=== PATIENT | male | born 1995 | race Caucasian/White ===

== ENCOUNTER 2022-07-31 06:09 | Emergency (ER) | payer SELFPAY ==
--- OUTSIDE RECORDS SUMMARY | 2022-07-31 06:12 | XMS REPORT | Continuity of Care Document ---
:1995 Author Organization [facility] t Address [address] [place] [address] Care Team Providers Name Role Phone Unavailable Unavailable Unavailable Problems This patient has no known problems. Allergies, Adverse Reactions, Alerts This patient has no known allergies or adverse reactions. Medications This patient has no known medications. Immunizations Ordered Immunization Filled Immunization Date Status Commen ts Source Name Name Pfizer COVID-19 Vaccine Pfizer COVID-19 2021-09-24 Completed Vaccine 00:00:00 Procedures This patient has no known procedures. Encounters Start End Encounter Admission Attending Care Care Encounter Source Date/Time Date/Time Type Type Clinicians Facility Department ID 2021-09-24 2021-09-24 Outpatient [facility] GCCOVIDV [id number] [facility]OVID 00:00:00 00:00:00 V Results This patient has no known results.
[2022-07-31] MEDS ORDERED: MORPHINE 4 MG/ML SYR ONE (06:52)
[2022-07-31] MEDS ORDERED: TAMSULOSIN 0.4 MG SR CAP ONE (06:52)
[2022-07-31] MEDS ORDERED: MAGNESIUM SULFATE 1 gm IVPB 1 GM/100 ML BAG IV ONE (06:52)
--- NOTE | 2022-07-31 07:12 | RAD REPORT ---
EXAM DESCRIPTION: CT - Stone Protocol - 07/31/2022 6:58 am CLINICAL HISTORY: Flank pain. right flank pain COMPARISON: <Comparisons> TECHNIQUE: Axial images were obtained without oral or IV contrast. Lack of contrast limits solid org an and vascular assessment. The [id number] spans the entirety of the system partially obscuring uppermost abdomen and lung bases. Coronal reformatted images were obtained and reviewed. All CT scans are performed using dose optimization technique as appropriate and may include automated exposure control or mA/KV adjustment according to patient size. FINDINGS: The lower lung gutierrez are clear. Imaged portions of the liver and spleen show no suspicious findings on non-contrast imaging. The panc reas and adrenal glands are normal. No pathologic lymphadenopathy in the abdomen or pelvis. 2 mm calculus right UVJ mild right hydronephrosis. This calculus is close to the bladder lumen. No ad ditional tract stone or hydronephrosis. No bowel obstruction, free air, free fluid or abscess. Appendectomy. Small fat containing umbilical. No significant bony abnormality. IMPRESSION: 2 mm right UVJ stone with mild right hydronephrosis. This stone is nearly passed into th e urinary bladder lumen.
[2022-07-31 07:18] LABS: Albumin 4.2 g/dL (3.4-5.0); Bilirubin Total 0.6 mg/dL (0.2-1.0); Protein, Total 8.6 g/dL (6.4-8.2)
[2022-07-31 07:24] LABS: Potassium 4.4 mmol/L (3.5-5.1)
[2022-07-31 07:25] LABS: Absolute Lymphocytes (CBC) 1.4 K/uL (0.7-4.9); Hematocrit 42.3 % (39.6-49.0); Lymphocytes % 15.6 % (15.3-44.8); MCV 88.4 fL (80-100); MPV 7.7 fL (7.6-11.3); RBC Red Blood Cell Count 4.79 M/uL (4.33-5.43)
[2022-07-31] MEDS ORDERED: NA CHLORIDE 0.9% 1,000 ML ONE (07:37)
[2022-07-31 08:00] LABS: Urine Blood Negative (Negative); Urine Glucose Negative (Negative); Urine Protein 1+ (Negative); Urine Specific Gravity 1.025 (1.005-1.030)
--- NOTE | 2022-07-31 08:01 | EDPHYS ---
Physician Documentation [facility] Name: Milan Rea Age: 27 yrs Sex: Male : 1995 Arrival Date: 07/31/2022 Time: 06:13 Bed 13 Private MD: JEF Physician Cory Fish HPI: 07/31 06:33 This 27 yrs old Male presents to ER via Ambulatory with complaints of Back Pain. rn 06:33 The patient presents with pain that is acute. The symptoms are located in the low back. rn Onset: The symptoms/episode began/occurred 5 day(s) ago. The pain radiates to the abdomen. Associated signs and symptoms: Pertinent positives: abdominal pain, Pertinent negatives: chest pain, fever. Modifying factors: The patient symptoms are alleviated by nothing, the patient symptoms are aggravated by nothing. Severity of symptoms: At their worst the symptoms were moderate, in the emergency department the symptoms have improved. The patient has not experienced similar symptoms in the past. The patient has been recently seen by a physician:. Pt reports right flank pain for a few days, got better initially, seen at clinic and told might have a kidney stone, pain worsened tonight. NO fever. + nausea. Pain radiates around to groin and testicles. No hx of kidney stones. . Historical: - Allergies: 06:24 No Known Allergies; bb - Home Meds: 06:24 None [Active]; bb - PMHx: 06:24 None; bb - PSHx: 06:24 Appendectomy; bb - Immunization history:: Client reports receiving the 2nd dose of the Covid vaccine, Pfizer. - Social history:: Smoking status: Patient denies any tobacco usage or history of. - Family history:: not pertinent. - Hospitalizations: : No recent hospitalization is reported. ROS: 06:33 Constitutional: Negative for fever, chills, and weight loss, Eyes: Negative for injury, rn pain, redness, and discharge, Cardiovascular: Negative for chest pain, palpitations, and edema, Respiratory: Negative for shortness of breath, cough, wheezing, and pleuritic chest pain, Abdomen/GI: + abd pain and nausea Back: + right flank pain MS/Extremity: Negative for injury and deformity, Skin: Negative for injury, rash, and discoloration, Neuro: Negative for headache, weakness, numbness, tingling, and seizure. Exam: 06:33 Constitutional: This is a well developed, well nourished patient who is awake, alert rn Head/Face: Normocephalic, atraumatic. Cardiovascular: Regular rate and rhythm. No pulse deficits. Respiratory: No increased work of breathing, no retractions or nasal flaring. Abdomen/GI: Soft, non-tender Back: No spinal tenderness. No costovertebral tenderness. Full range of motion. Skin: Warm, dry MS/ Extremity: Pulses equal, no cyanosis. Neuro: Awake and alert, GCS 15 Vital Signs: 06:22 BP 123 / 81; Pulse 84; Resp 18 S; Temp 98.7(O); Pulse Ox 96% on R/A; Weight 122.47 kg bb (R); Height 5 ft. 11 in. (180.34 cm) (R); Pain 6/10; 06:47 BP 103 / 65; Pulse 82; Resp 22; Pulse Ox 99% on R/A; ja4 07:15 BP 121 / 73; Pulse 76; Resp 18; Pulse Ox 100% ; Pain 6/10; jh6 08:45 BP 118 / 76; Pulse 77; Resp 17; Pain 2/10; jh6 06:22 Body Mass Index 37.66 (122.47 kg, 180.34 cm) bb MDM: 06:15 Patient medically screened. rn 07:12 Differential diagnosis: Pyelonephritis sprain, Ureterolithiasis. Data reviewed: vital miki signs, nurses notes, lab test result(s), radiologic studies, CT scan. 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 Counseling: I had a detailed discussion with the patient and/or guardian regarding: the historical points, exam findings, and any diagnostic results supporting the discharge/admit diagnosis, lab results, the need for outpatient follow up, for definitive care, a family practitioner, a urologist. 07/31 06:27 Order name: CBC with Diff; Complete Time: 07:59 rn 07/31 06:27 Order name: CMP; Complete Time: 07:59 rn 07/31 06:27 Order name: Urine Microscopic Only rn 07/31 06:27 Order name: CT Stone Protocol; Complete Time: 07:59 rn 07/31 08:00 Order name: Urine Dipstick-Ancillary EDIL 07/31 06:27 Order name: IV Saline Lock; Complete Time: 07:02 rn 07/31 06:27 Order name: Labs collected and sent; Complete Time: 07:31 rn 07/31 06:27 Order name: Urine Dipstick-Ancillary (obtain specimen); Complete Time: 08:00 rn Administered Medications: 07:02 Drug: morphine 4 mg Route: IVP; Infused Over: 4 mins; Site: left antecubital; 4 07:02 Drug: Magnesium Sulfate 1 grams Route: IVPB; Infused Over: 1 hrs; Site: left ja4 antecubital; 07:02 Drug: Flomax (tamsulosin) 0.4 mg Route: PO; 4 07:37 Follow up: Response: No adverse reaction 6 07:36 Drug: NS 0.9% 1000 ml Route: IV; Rate: 1 bolus; Site: left antecubital; 6 08:16 Drug: Ketorolac 15 mg Route: IVP; Site: left antecubital; 6 09:19 Follow up: Response: No adverse reaction; Pain is decreased ss Disposition Summary: 07/31/22 08:00 Discharge Ordered Location: Home miki Problem: new miki Symptoms: have improved miki Condition: Stable miki Diagnosis - Hydronephrosis with renal and ureteral calculous obstruction miki Followup: miki - With: Private Physician - When: 1 - 2 days - Reason: Recheck today's complaints, Continuance of care, Re-evaluation by your physician Followup: miki - With: - When: 2 - 3 days - Reason: Recheck today's complaints, Continuance of care, Re-evaluation by your physician Discharge Instructions: - Discharge Summary Sheet miki - Kidney Stones miki - Kidney Stones, [id number] miki - Hydronephrosis miki Forms: - Medication Reconciliation Form miki - Thank You Letter miki - Antibiotic Education miki - Prescription Opioid Use miki - Work release form ss Prescriptions: - Flomax 0.4 mg Oral capsule - take 1 capsule by ORAL route once daily 1/2 hour following the same meal each miki day; 30 capsule; Refills: 0, Product Selection Permitted - Zofran 4 mg Oral Tablet - take 1 tablet by ORAL route every 12 hours As needed; 20 tablet; Refills: 0, [facility] Product Selection Permitted - Cipro 500 mg Oral Tablet - take 1 tablet by ORAL route every 12 hours for 7 days; 14 tablet; Refills: 0, [facility] Product Selection Permitted - Tylenol-Codeine #3 300 mg-30 mg Oral - take 2 tablet by ORAL route every 6 hours; 24 tablet; Refills: 0, Product [facility] Selection Permitted Signatures: Dispatcher [employer] Cory Dow MD MD cha Ballard, Brenda, RN RN Darron Gonzales MD MD rn Hastedt, Jennifer, RN RN jh6 Milan Dillard RN RN ja4 Ximena Morris RN ss
--- NOTE | 2022-07-31 08:01 | ER ---
Nurse's Notes [facility] Name: Milan Rea Age: 27 yrs Sex: Male : 1995 Arrival Date: 07/31/2022 Time: 06:13 Bed 13 Private MD: Diagnosis: Hydronephrosis with renal and ureteral calculous obstruction Presentation: 07/31 06:22 Chief complaint: Patient states: last week he was diagnosed with a kidney stone and he bb thought it passed but now the pain has come back to right lower back and currently is 6/10. Coronavirus screen: At this time, the client does not indicate any symptoms associated with coronavirus-19. Ebola Screen: No symptoms or risks identified at this time. Initial Sepsis Screen: Does the patient meet any 2 criteria? No. Patient's initial sepsis screen is negative. Does the patient have a suspected source of infection? No. Patient's initial sepsis screen is negative. Risk Assessment: Do you want to hurt yourself or someone else? Patient reports no desire to harm self or others. Onset of symptoms was July 31, 2022. 06:22 Method Of Arrival: Ambulatory bb 06:22 Acuity: EMILY 3 bb Historical: - Allergies: 06:24 No Known Allergies; bb - Home Meds: 06:24 None [Active]; bb - PMHx: 06:24 None; bb - PSHx: 06:24 Appendectomy; bb - Immunization history:: Client reports receiving the 2nd dose of the Covid vaccine, Pfizer. - Social history:: Smoking status: Patient denies any tobacco usage or history of. - Family history:: not pertinent. - Hospitalizations: : No recent hospitalization is reported. Screenin:45 Abuse screen: Denies threats or abuse. Nutritional screening: No deficits noted. ja4 Tuberculosis screening: No symptoms or risk factors identified. Fall Risk None identified. Assessment: 06:45 General: Appears uncomfortable, Behavior is cooperative, appropriate for age, anxious. ja4 Pain: Complains of pain in right flank Pain currently is 7 out of 10 on a pain scale. Quality of pain is described as aching. Neuro: No deficits noted. Cardiovascular: No deficits noted. 06:47 Reassessment: attempted iv on pt. iv infiltrated and pt blood pressure dropped caussing ja4 pt to feel light headed and nauseated. pt placed with head down and feet up. 07:15 Neuro: Level of Consciousness is awake, alert, Oriented to person, place, time. jh6 07:15 Reassessment: Patient is alert, oriented x 3, equal unlabored respirations, skin jh6 warm/dry/pink. 07:15 Pain: Complains of pain in mid back area, right mid back and right low back Pain jh6 currently is 6 out of 10 on a pain scale. Vital Signs: 06:22 BP 123 / 81; Pulse 84; Resp 18 S; Temp 98.7(O); Pulse Ox 96% on R/A; Weight 122.47 kg bb (R); Height 5 ft. 11 in. (180.34 cm) (R); Pain 6/10; 06:47 BP 103 / 65; Pulse 82; Resp 22; Pulse Ox 99% on R/A; ja4 07:15 BP 121 / 73; Pulse 76; Resp 18; Pulse Ox 100% ; Pain 6/10; jh6 08:45 BP 118 / 76; Pulse 77; Resp 17; Pain 2/10; jh6 06:22 Body Mass Index 37.66 (122.47 kg, 180.34 cm) ED Course: 06:13 Patient arrived in ED. bp1 06:15 Darron Rivera MD is Attending Physician. rn 06:24 Triage completed. bb 06:24 Arm band placed on Patient placed in an exam room, on a stretcher, on pulse oximetry. bb 06:37 Milan Dillard, RN is Primary Nurse. ja4 06:45 Bed in low position. Call light in reach. Side rails up X2. ja4 06:45 No provider procedures requiring assistance completed. ja4 06:59 CT Stone Protocol In Process Unspecified. EDMS 07:02 Inserted saline lock: 20 gauge in left antecubital area, using aseptic technique. Blood ja4 collected. 07:05 Attending Physician role handed off by Darron Rivera MD miki 07:05 Cory Fish MD is Attending Physician. miik 07:31 CBC with Diff Sent. kc6 08:00 Tristin Church MD is Referral Physician. miki 08:00 Urine Microscopic Only Sent. kc6 09:09 IV discontinued, intact, bleeding controlled, No redness/swelling at site. Pressure jh6 dressing applied. Administered Medications: 07:02 Drug: morphine 4 mg Route: IVP; Infused Over: 4 mins; Site: left antecubital; 4 07:02 Drug: Magnesium Sulfate 1 grams Route: IVPB; Infused Over: 1 hrs; Site: left [facility] antecubital; 07:02 Drug: Flomax (tamsulosin) 0.4 mg Route: PO; 4 07:37 Follow up: Response: No adverse reaction [facility] 07:36 Drug: NS 0.9% 1000 ml Route: IV; Rate: 1 bolus; Site: left antecubital; 6 08:16 Drug: Ketorolac 15 mg Route: IVP; Site: left antecubital; 6 09:19 Follow up: Response: No adverse reaction; Pain is decreased ss Medication: 06:45 VIS not applicable for this client. [facility] Outcome: 08:00 Discharge ordered by . miki 09:10 Discharged to home ambulatory. [facility] 09:10 Condition: good 09:10 Discharge instructions given to patient, Instructed on discharge instructions, Demonstrated understanding of instructions, follow-up care, medications, Prescriptions given X 2. 09:19 Patient left the ED. ss Signatures: Dispatcher [employer] EDMS Cory Fish MD MD cha Ballard, Brenda, RN RN Darron Gonzales MD MD rn Smirch, Shelby, RN RN Sheridan Hernandez Jennifer RN RN [email or web address] Rubi Sandoval Jeremy, RN RN ja4
[2022-07-31 08:13] LABS: Urine Mucus 4+ /HPF (None Seen)
[2022-07-31] MEDS ORDERED: KETOROLAC 30 MG/ML INJ ONE (08:22)
[2022-07-31 09:35] VITALS: TEMP 98.7
[2022-07-31 10:02] VITALS: O2SAT 100
[2022-07-31 10:04] VITALS: BP 118/76
== END 2022-07-31 09:19 | disposition home or self-care (01) ==
LOC: ER 06:09
DX: N13.2 Hydronephrosis with renal and ureteral calculous obstruction (principal)
CPT/HCPCS: 36415; 74176; 76377; 80053; 81003; 81015; 85025; 96374; 96375; 99284; J3475; J7030

== ENCOUNTER → 2024-02-01 | Emergency (ER) | payer OTHER, SELFPAY ==
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
[2024-02-01 13:02] VITALS: BP 121/75; TEMP 98.4; O2SAT 100
== END ==
LOC: ER 12:01
DX: Z04.1 Encounter for examination and observation following transport accident (principal); V44.5XXA Car driver injured in collision with heavy transport vehicle or bus in traffic accident, initial encounter